=== PATIENT | female | born 1950 | race Caucasian/White ===

== ENCOUNTER 2020-09-29 08:25 | Outpatient (REF) | payer MEDICARE, OTHER, SELFPAY ==
--- NOTE | 2020-09-29 08:30 | MM_ITS ---
EXAMINATION: MM SCREENING DIGITAL BREAST TOMOSYNTHESIS, BILATERAL CLINICAL INFORMATION: Screening. Asymptomatic. The lifetime risk of breast cancer based on the Tyrer-Cuzick Model is 4%. COMPARISON: Mammography: 09/24/2019, 09/18/2018, 09/13/2017 TECHNIQUE: Digital breast tomosynthesis is performed in both the craniocaudal and mediolateral oblique views along with computer-aided detection (CAD). Synthesized 2D images are generated from the tomosynthesis. Additional exaggerated right CC view is provided. FINDINGS: There are scattered areas of fibroglandular density (ACR BI-RADS breast composition Category b). There are no significant masses, abnormal calcifications, or other abnormalities. Again, there are 2 circumscribed stable nodules possibly inferior parenchymal nodes right breast posterior 9:00 position and posterior upper outer quadrant. No significant changes. MM/MM tomosynthesis screening BI IMPRESSION: No mammographic evidence of malignancy. ASSESSMENT: BI-RADS 2: Benign RECOMMENDATION: Routine annual mammography screening. This patient's information was entered into a reminder system with a target due date for their next mammogram.
== END 2020-09-29 08:26 | disposition home or self-care (01) ==
LOC: HO.MAMMO 08:25
PROVIDERS: Visit Provider Obstetrics & Gynecology
DX: Z12.31 Encounter for screening mammogram for malignant neoplasm of breast (principal)
CPT/HCPCS: 77063; 77067

== ENCOUNTER 2021-10-19 07:53 | Outpatient (REF) | payer MEDICARE, OTHER, SELFPAY ==
--- NOTE | ~2021-10-19 | MM_ITS ---
EXAMINATION: MM SCREENING DIGITAL BREAST TOMOSYNTHESIS, BILATERAL CLINICAL INFORMATION: Screening. Asymptomatic. The lifetime risk of breast cancer based on the Tyrer-Cuzick Model is 4.2%. COMPARISON: Mammography: September 29, 2020 and studies dating back to July 16, 2014 TECHNIQUE: Digital breast tomosynthesis is performed in both the craniocaudal and mediolateral oblique views along with computer-aided detection (CAD). Synthesized 2D images are generated from the tomosynthesis. FINDINGS: There are scattered areas of fibroglandular density (ACR BI-RADS breast composition Category b). There are no significant masses, abnormal calcifications, or other abnormalities. MM/MM tomosynthesis screening BI IMPRESSION: There are no significant changes from prior study. ASSESSMENT: BI-RADS 1: Negative RECOMMENDATION: Routine annual mammography screening. This patient's information was entered into a reminder system with a target due date for their next mammogram.
== END 2021-10-19 07:54 | disposition home or self-care (01) ==
LOC: HO.MAMMO 07:53
PROVIDERS: PCP Internal Medicine; Visit Provider Obstetrics & Gynecology
DX: Z12.31 Encounter for screening mammogram for malignant neoplasm of breast (principal)
CPT/HCPCS: 77063; 77067

== ENCOUNTER 2022-10-25 07:59 | Outpatient (REF) | payer MEDICARE, OTHER, SELFPAY ==
--- NOTE | ~2022-10-25 | MM_ITS ---
EXAMINATION: MM SCREENING DIGITAL BREAST TOMOSYNTHESIS, BILATERAL CLINICAL INFORMATION: Screening. Asymptomatic. The lifetime risk of breast cancer based on the Tyrer-Cuzick Model is 4.1%. COMPARISON: Mammography: October 19, 2021 and studies dating back to August 20, 2015 TECHNIQUE: Digital breast tomosynthesis is performed in both the craniocaudal and mediolateral oblique views along with computer-aided detection (CAD). Synthesized 2D images are generated from the tomosynthesis. FINDINGS: There are scattered areas of fibroglandular density (ACR BI-RADS breast composition Category b). There are no significant masses, abnormal calcifications, or other abnormalities. MM/MM tomosynthesis screening BI IMPRESSION: No significant changes from prior exam. ASSESSMENT: BI-RADS 1: Negative RECOMMENDATION: Routine annual mammography screening. This patient's information was entered into a reminder system with a target due date for their next mammogram.
== END 2022-10-25 08:00 | disposition home or self-care (01) ==
LOC: HO.MAMMO 07:59
PROVIDERS: Visit Provider Internal Medicine
DX: Z12.31 Encounter for screening mammogram for malignant neoplasm of breast (principal)
CPT/HCPCS: 77063; 77067

== ENCOUNTER 2023-10-31 07:53 | Outpatient (REF) | payer MEDICARE, SELFPAY | END 2023-10-31 07:54 | disposition home or self-care (01) | LOC: HO.MAMMO 07:53 | PROVIDERS: PCP Internal Medicine; Visit Provider Internal Medicine | DX: Z12.31 Encounter for screening mammogram for malignant neoplasm of breast (principal) | CPT/HCPCS: 77063; 77067 ==

== ENCOUNTER → 2023-10-31 08:15 | Outpatient (BNV) | payer MEDICARE, SELFPAY | PROVIDERS: PCP Internal Medicine; Visit Provider Radiology Diagnostic Radiology | DX: Z12.31 Encounter for screening mammogram for malignant neoplasm of breast (principal) | CPT/HCPCS: 77063; 77067 ==

== ENCOUNTER 2024-11-05 07:44 | Outpatient (REF) | payer MEDICARE, SELFPAY ==
--- OUTSIDE RECORDS SUMMARY | 2024-11-05 07:47 | XMS_ITS ---
Author Organization JUVENTINO STEVENSON MD Address [address] [address] Care Team Providers Care Peanut Sorter Name Role Phone JUVENTINO STEVENSON Primary Care Provider REASON FOR REFERRAL Reason Right knee osteoarth ritis Diagnosis 1 Knee swelling (M25.4 69) Referral Organization JUVENTINO STEVENSON MD Referring Provider First Name JUVENTINO Referring Provider Last Name NATHALIA Referring Provider Speciality Internal M edicine Referred Organization [facility] Referred Address [address] [place] [phone], Referred Provider Specialty Orthopedic S urgery Referral Priority Routine REASON FOR VISIT hurt knee- right PROBLEMS Problem Type ICD Code Onset Dates Problem Status W/U Status Risk SNOMED Code Notes Problem Knee swelling (M25.469) Active confirmed Knee joint effusion (452920353) VITAL SIGNS Temperature 98 degrees Fahrenheit 05/01/2024 Blood pressure systolic 144 mm Hg 05/01/20 24 Blood pressure diastolic 81 mm Hg 024 Heart Rate 73 /min 05/01/2024 Height 63 in 05/01/2024 Weight 178 lbs 05/01/2024 BMI 31.53 kg/m2 05/01/2024 Oximetry 97 % 05/01/2024 Encounters Encounter Location Date Provider Diagnosis JUVENTINO STEVENSON MD [address] [address] 05/01/2024 JUVENTINO STEVENSON Knee swelling M25.46 9 ASSESSMENTS Encounter Date Diagnosis Assessment Notes Treatment Notes Treatment Clinical Notes Section Notes 05/01/2024 Knee swelling (ICD-10 - M25.469) Patient most likely has osteoarthritis will refer to [facility] in [place] for further evaluation 05/01/2024 Other Time spent in encounter: 20 minutesmore then 50% time spent as belowxxxxxDecision making points;: Previsit revew of relevant medical record, obtaining and reviewed old data separately ,obtained history, performing a medically appropriate examination and evaluation, counseling and educating patient, monitoring medication, tests or procedures, documenting clinical information in the medical record, independently interpreting results and communicating the results with the patientxxxxxThis dictation was done with [employer] voice dictation system for compiling the notes. There may be errors in punctuation, grammar and spelling errors, that are unintentional that may have been missed during final editing of the document PLAN OF TREATMENT Treatment Notes Assessment Notes Knee swelling Patient most likely has osteoarthritis will refer to [facility] in [place] for further evaluation Other Time spent in encoun ter: 20 minutesmore then 50% time spent as belowxxxxxDecision making points;: Previsit revew of relevant medical record, obtaining and reviewed old data separately ,obtained history, performing a medically appropriate examination and evaluation, counseling and educating patient, monitoring medication, tests or procedures, documenting clinical information in the medical record, independently interpreting results and communicating the results with the patientxxxxxThis dictation was done with [employer] voice dictation system for compiling the notes. There may be errors in punctuation, grammar and spelling errors, that are unintentional that may have been missed during final editing of the document Referrals Referral Date Details Right knee osteoarth ritis , [address] [place] [address], [id number], Progress Notes * Renata HANLEYOB: 9 (74 yo F)Acc No.[id number]:05/01/2024 Progress Notes Patient:??Jeannie HANLEY Provider:??Juventino Stevenson MD :1950?Age:73 Y?Sex:Fe male Date:05/01/2024 Address:[address] [place] [address], [id number] Subjective: * Chief Complaints: * ?1. Hurt knee- right. * HPI: ?Constitutional:? Follow-up: ?Language spoken is Turkmen, translation services not required ?This patient comes to the office for follow-up of right knee pain the right knee pain happened 2 days ago while trying to stop the lawnmower. Patient went to urgent care x-ray was done. There was no acute fractures noted. The pain appears to be getting better. * ROS:?GENERAL/CONSTITUTIONAL:?Patient denies??change in appetite, fever, weakness.?Right knee pain without gait abnormalities. * Medical History:?? * Surgical History:??bcc exsio n on nose micheals 2021. * Family History:??Father: dec eased, Patient's father had heart disease.??Mother: , dementia 100 yr.?? * Social History:?never smoked alchol minmal. Objective: * Vitals:??Temp:98F, HR:73/min , BP:144/81mm Hg, Wt:178lbs, Ht: 63 in, BMI:31.53Index, Oxygen sat %:97%, Ht-cm: 160.02 cm, Wt-k.74 kg. * Examination: ?General Examination: ?GENERAL APPEARANCE:??in no acute distress, well developed, well nourished.?NECK / THYROID:??neck supple, full range of motion, no cervical lymphadenopathy.?Examination of the right knee indicates no swelling ?X-ray indicates mild to moderate tricompartment osteoarthritis. Assessment: * Assessment: 1.??Knee swelling - M25.469 (Primary)?? Plan: * Treatment: 2.??Others?? Notes: Time spent in encounter: 20 minutesmore then 50% time spent as belowxxxxxDecision making points;: Previsit revew of relevant medical record, obtaining and reviewed old data separately ,obtained history, performing a medically appropriate examination and evaluation, counseling and educating patient, monitoring medication, tests or procedures, documenting clinical information in the medical record, independently interpreting results and communicating the results with the patientxxxxxThis dictation was done with [employer] voice dictation system for compiling the notes. There may be errors in punctuation, grammar and spelling errors, that are unintentional that may have been missed during final editing of the document ? * Billing Information: * Visit Code:?? 56106 Office Visit, Est Pt., Level 3. * Procedure Codes:?? * Sign off status: Pending * Provider:??Juventino Stevenson MD Date:??2023 History and Physical Notes * HPI (History of Present Illness) Category Sub-Category Detail Notes Category Not es Constitutional Follow-up: Language spoken is Turkmen, translation services not required This patient comes to the office for follow-up of right knee pain the right knee pain happened 2 days ago while trying to stop the lawnmower. Patient went to urgent care x-ray was done. There was no acute fractures noted. The pain appears to be getting better Examination Category Sub-Category Detail Notes Category Not es General Examination GENERAL APPEARANCE: in no acute distress, well developed, well nourished Examination of the right knee indicates no swelling X-ray indicates mild to moderate tricompartment osteoarthritis NECK / THYROID: neck supple, full ra nge of motion, no cervical lymphadenopathy Consultation Request Notes Referral Date Referring Provider Referred Provider Not es 05/01/2024 JUVENTINO STEVENSON , Right knee oste oarthritis
--- OUTSIDE RECORDS SUMMARY | 2024-11-05 07:47 | XMS_ITS | Patient Health Record ---
Author Organization IZA SLOAN MD Address [address] [address] Care Team Providers Care Mule Driver Name Role Phone IZA SLOAN Primary Care Provider ALLERGIES No Known Allergies REASON FOR REFERRAL Reason Right knee osteoarth ritis Diagnosis 1 Knee swelling (M25.4 69) Referral Organization IZA SLOAN MD Referring Provider First Name IZA Referring Provider Last Name NATHALIA Referring Provider Speciality Internal M edicine Referred Organization [facility] Referred Address [address] [place] [phone], Referred Provider Specialty Orthopedic S urgery Referral Priority Routine PROBLEMS Problem Type ICD Code Onset Dates Problem Status W/U Status Risk SNOMED Code Notes Problem Cellulitis of unspecified finger (L03.019) Active confirmed Cellulitis of finger (68332229) Problem Medicare annual wellness visit, subsequent (Z00.00) Active confirmed Annual wellness visit (524461272744142) Problem Hyperchloremia (E87.8) Active confirmed Hyperchloremia (10909072) Problem Basal cell carcinoma (BCC), unspecified site (C44.91) Active confirmed Basal cell carcinoma of skin (924459723) Problem Skin lesion (L98.9) Active confirmed Skin lesion (29751115) Problem Knee swelling (M25.469) Active confirmed Knee joint effusion (674413652) VITAL SIGNS Heart Rate 73 /min 05/01/2024 Temperature 98 degrees Fahrenheit 05/01/2024 Oximetry 97 % 05/01/2024 Blood pressure diastolic 81 mm Hg 05/01/2024 Height 63 in 05/01/2024 Blood pressure systolic 144 mm Hg 05/01/2024 Weight 178 lbs 05/01/2024 BMI 31.53 kg/m2 05/01/2024 Encounters Encounter Location Date Provider Diagnosis IZA SLOAN MD [address] [facility] [address] [place] [address] 05/01/2024 IZA SLOAN Knee swelling M25.46 9 ASSESSMENTS Encounter Date Diagnosis Assessment Notes Treatment Notes Treatment Clinical Notes Section Notes 05/01/2024 Knee swelling (ICD-10 - M25.469) Patient most likely has osteoarthritis will refer to [facility] in [place] for further evaluation 05/01/2024 Other Time spent [...] with the patientxxxxxThis dictation was done with [employer] dictation system for compiling the notes. There may be errors in punctuation, grammar and spelling errors, that are unintentional that may have been missed during final editing of the document PLAN OF TREATMENT Pending Test Test Name Order Date Lipid Panel 10/02/2022 Chem-Comprehensive 10/02/2022 Insurance Providers Payer Name Payer Address Payer Phone Subscriber Number Group Number Insured Name Patient Relationship to Insured Coverage Start Date Coverage End Date Medicare [address] [place] [phone] [id number] Jeannie Hanley Self - patient is the insured FOR LIFE [address] [place] [address] [phone] [id number] Jeannie Hanley Self - patient is the insured MEDICAL (GENERAL) HISTORY Surgical History Surgery Date(Month/Year) bcc exsion on nose 2021
== END 2024-11-05 07:45 | disposition home or self-care (01) ==
LOC: HO.MAMMO 07:44
PROVIDERS: PCP Internal Medicine; Visit Provider Internal Medicine
DX: Z12.31 Encounter for screening mammogram for malignant neoplasm of breast (principal)
CPT/HCPCS: 77063; 77067

== ENCOUNTER → 2024-11-05 08:15 | Outpatient (BNV) | payer MEDICARE, SELFPAY | PROVIDERS: PCP Internal Medicine; Visit Provider Internal Medicine | DX: Z12.31 Encounter for screening mammogram for malignant neoplasm of breast (principal) | CPT/HCPCS: 77063; 77067 ==